=== PATIENT | male | born 1935 | race Caucasian/White ===

== ENCOUNTER 2019-11-05 16:49 | Inpatient (IN) | payer MEDICARE ==
[~2019-11-05 16:49] MED LIST: Iopamidol-370 76% 500 ML 1 ML ONE
[2019-11-05 17:52] LABS: RBC/HPF 0-3 HPF (0-3); Squamous Epithelial 0-3 HPF (0-3); WBC/HPF 0-3 HPF (0-3)
[2019-11-05 17:57] LABS: Hemoglobin 11.6 g/dL (14.0-18.0); Mean Corpuscular HGB CONC 31.8 g/dL (32.0-36.0); Mean Corpuscular Hemoglobin 30.1 pg (27.0-31.0); Mean Corpuscular Volume 94.6 fL (78.0-98.0); Mean Platelet Volume 8.6 fL (7.4-10.4); Platelet Count 247 thou/uL (130-400); RBC Distribution Width 12.5 % (11.5-14.5); Red Blood Cell (RBC) Count 3.86 mill/uL (4.70-6.10)
[2019-11-05 17:57] LABS: Bilirubin Small (Negative); Blood, Urine Trace (Negative); Clarity Clear (Clear); Glucose, Urine (Dipstick) Negative (Negative); Leukocyte Negative (Negative); Nitrite Negative (Negative); Protein, Urine (Dipstick) 30 mg/dL (Neg-Trace)
[2019-11-05 17:58] LABS: Bacteria/HPF None Seen HPF (None Seen)
[2019-11-05 18:04] LABS: INR-International Normal Ratio 1.5; PTT 27.9 SEC (22.9-36.1); Prothrombin Time 17.6 SEC (12.0-14.7)
[2019-11-05 18:09] LABS: Actual Bicarbonate (HCO3v) 19 mEq/L (22-28); Analyzer IN Cardio ER; Base Excess -4.4 mEq/L (-2.0 to +3.0); Calcium, Ionized 1.02 mmol/L (1.16-1.32); Chloride (ABG LAB) 112 mmol/L (98-106); Potassium - ABG Lab 5.03 mmol/L (3.70-5.30); Sodium 141.9 mmol/L (133-146); pH (venous) 7.44 (7.32-7.43)
[2019-11-05 18:19] LABS: ALT (SGPT) 50 U/L (8-55); AST (SGOT) 106 U/L (5-34); Albumin 2.2 g/dL (3.4-4.8); Alkaline Phosphatase 106 U/L (40-110); Anion Gap 21 mmol/L (10-20); BUN (Urea Nitrogen) 91 mg/dL (8.4-25.7); Bilirubin, Total 1.1 mg/dL (0.2-1.2); Calc. Creatinine Clearance 0 mL/min (70-130); Calcium 7.8 mg/dL (7.8-10.44); Carbon Dioxide 18 mmol/L (23-31); Chloride 113 mmol/L (98-107); Estimated GFR-MDRD 30; Globulin 2.3 g/dL (2.4-3.5); Glucose 126 mg/dL (83-110); Lipase 46 U/L (8-78); Potassium 5.4 mmol/L (3.5-5.1); Protein, Total 4.5 g/dL (5.8-8.1); Sodium 147 mmol/L (136-145)
[2019-11-05 18:29] LABS: Band 67 % (5-11); Hypochromia SLIGHT = 6-15 cells (100X) (0-5/hpf); Lymphocytes 7 % (21-51); MDiff Complete? YES; Metamyelocyte 2 % (0-0); Monocytes 3 % (0-10); Neutrophil 19 % (42-75); Platelet Morphology Comment Appears Adequate; Polychromasia SLIGHT = 2-3 cells (100X) (0-2/hpf); Reactive Lymphocytes 2 % (0-10); Reflex for Review?? NO; White Blood Cell (WBC) Count 17.5 thou/uL (4.8-10.8)
[2019-11-05] MEDS ORDERED: Cefepime 2 GM VIAL ONE (18:31)
[2019-11-05 18:43] LABS: CKMB 43.5 ng/mL (0-6.6)
--- NOTE | 2019-11-05 19:24 | CT ---
CT Head without IV contrast COMPARISON: And) [place] [facility] HISTORY: Paresthesias, visual TECHNIQUE: Axial CT imaging at 5 mm intervals from vertex through skull base without contrast FINDINGS: There is no evidence of an acute cortical infarction, hemorrhage, mass effect, or midline shift. Ther e is decreased attenuation seen in the periventricular white matter which is nonspecific but likely attributable to severe chronic small vessel ischemic changes. Severe chronic small vessel ischemic ch anges were also seen on prior MRI exam in 2007. Small focus of encephalomalacia seen in the right occipital lobe likely related to remote infarction. Signal abnormality was seen in this region on katerin or MRI exam in 2008. Small low-density focus is seen in the right cerebellar hemisphere related to tiny remote infarction. There is mild cerebral volume loss. The ventricular system is normal in size, shape, and position for the degree of sulcal atrophy. Minimal mucosal thickening is seen in each maxillary antrum. The mastoid air cells are clear. Dense v ascular calcifications are seen in the carotid siphons. Osseous structures appear intact. IMPRESSION: 1. No acute intracranial abnormality demonstrated. 2. Severe chronic small vessel ischemic changes. 3. Mild cerebral volume loss.
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
[2019-11-05] MEDS ORDERED: Octreotide Acetate 50 MCG/ML AMP ONE (20:56)
[2019-11-05] MEDS ORDERED: Pantoprazole 40 MG VIAL ONE (20:56)
[2019-11-05 21:03] LABS: Lactic Acid 6.1 mmol/L (0.5-2.2)
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
[2019-11-05] MEDS ORDERED: Octreotide Acetate 1,250 MCG in Sodium Chloride 0.9% 250 ML 250 ML IVPB SCH (21:15)
[2019-11-05 22:02] LABS: Platelet Count 206 thou/uL (130-400)
[2019-11-05 22:04] LABS: Fibrinogen 438 mg/dL (253-463)
[2019-11-05 22:05] LABS: INR-International Normal Ratio 1.7; PTT 30.9 SEC (22.9-36.1); Prothrombin Time 20.3 SEC (12.0-14.7)
[2019-11-05 22:16] LABS: FSP-Qualitative ABNORMAL (Normal); FSP-Semiquantitative >=20 & <40 mcg/mL (Less than 5)
[2019-11-05 22:20] LABS: D-Dimer Test 5.72 *mcg/mL (0.27-0.43)
--- NOTE | 2019-11-05 22:49 | PDOC.EVN ---
Event Note - Event Note Event Note: H&P dictated #[id number]. Patient without family or contacts to inform about his critical status. Only number available is [phone] for Rain Dino, the neighbor who called EMS. No answer to the phone tonight on multiple attempts. Will need to continue trying to contact to see if there is any family in the morning.
--- NOTE | 2019-11-05 23:22 | ULT ---
BILATERAL LOWER EXTREMITY ARTERIAL DOPPLER WITH SPECTRAL ANALYSIS AND COLOR FLOW EVALUATION: History: Bilateral lower extremity cyanosis and no detectable pulse in the Emergency Department. Technique: Angeles scale, color flow, doppler evaluation and Spectral analysis of the bilateral lower ex tremity arterial vessels performed with 2D imaging. FINDINGS: Peak systolic velocity in the right common femoral artery is 130.5 cm/sec which is within normal limi ts, but there is spectral broadening of the waveforms suggesting significant stenosis. Velocity measu rements throughout the remainder of the right lower extremity as well as involving the left lower ext remity are significantly decreased throughout and findings are likely attributable to inflow stenosis as well as significant bilateral extremity atherosclerotic vascular disease. There is significantly decreased peak systolic velocities throughout the left lower extremity arterial vessels. The left dorsalis pedis artery is not visualized. The popliteal artery and veins bilaterally are diff icult to evaluate due to patient conditions noted by remote sensing technologist. Incidental note is made of decreased lumen compressibility with only trace flow seen within the left superficial femoral vein from proximal to distal. IMPRESSION: Significantly decreased peak systolic velocities throughout the lower extremity arterial vessels bila terally suggesting significant in-flow stenosis as well as significant atherosclerotic vascular disea se throughout the bilateral lower extremity arterial vessels. Recent CT pelvis demonstrated significa nt calcified atherosclerotic plaque limiting evaluation of the lumen of the arterial vessels involvin g both the iliac and visualized proximal femoral arteries. 2. Evidence of DVT involving the left superficial femoral vein. Only a trace amount of flow is able t o be detected. 3. Subcutaneous edema within the distal left lower extremity. 4. Above findings discussed with Dr. Jensen in the Emergency Department on 11-05-2019 at 2228 hours. POS: OFF
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
[2019-11-05] MEDS ORDERED: Ondansetron ODT 4 MG TAB PO PRN (23:58)
[2019-11-05] MEDS ORDERED: Acetaminophen 325 MG TAB PO PRN (23:58)
[2019-11-05] MEDS ORDERED: Ondansetron PF 4 MG/2 ML Vial IVP PRN (23:58)
[2019-11-05] MEDS ORDERED: Acetaminophen 650 MG Suppository PR PRN (23:58)
[2019-11-06 00:23] VITALS: BMI 20.9
[2019-11-06 01:03] LABS: Troponin I 0.593 ng/mL (< 0.028)
[2019-11-06] MEDS ORDERED: Norepinephrine 8 MG/0.9% NS 250 ML ONE (01:40)
[2019-11-06] MEDS: Norepinephrine 8 MG/0.9% NS 250 ML IVPB SCH (02:11)
[2019-11-06] MEDS: Sodium Chloride 0.9% 1,000 ML IV SCH ×4 (02:26→19:42)
[2019-11-06 04:27] LABS: Anion Gap 12 mmol/L (10-20); BUN (Urea Nitrogen) 103 mg/dL (8.4-25.7); Calc. Creatinine Clearance 24 mL/min (70-130); Carbon Dioxide 21 mmol/L (23-31); Chloride 117 mmol/L (98-107); Estimated GFR-MDRD 27; Glucose 116 mg/dL (83-110); Potassium 4.9 mmol/L (3.5-5.1); Sodium 145 mmol/L (136-145)
[2019-11-06 05:13] LABS: Band 74 % (5-11); Burr Cells SLIGHT = 2-5 cells (100X) (0-1/hpf); Hemoglobin 10.9 g/dL (14.0-18.0); Lymphocytes 3 % (21-51); MDiff Complete? YES; Mean Corpuscular HGB CONC 32.9 g/dL (32.0-36.0); Mean Corpuscular Hemoglobin 30.3 pg (27.0-31.0); Mean Platelet Volume 8.9 fL (7.4-10.4); Metamyelocyte 3 % (0-0); Monocytes 1 % (0-10); Neutrophil 19 % (42-75); Nucleated RBC 3 % (0); Platelet Count 192 thou/uL (130-400); Polychromasia SLIGHT = 2-3 cells (100X) (0-2/hpf); RBC Distribution Width 13.3 % (11.5-14.5)
--- NOTE | 2019-11-06 07:17 | RAD ---
CHEST 1 VIEW: Date: 11/06/2019 INDICATION: Line placement. COMPARISON: Prior exam dated 06/08/2016. FINDINGS: There is hazy opacity involving the left hemithorax suspicious for layered effusion. There is a tiny right pleural effusion. There is mild cardiomegaly. There is pulmonary vascular congestion. There is a right IJ central venous catheter projecting to the SVC. Vascular calcifications and aortic arch sim ilar appearing. No pneumothorax evident. COPD change is similar appearing. No definite acute osseous abnormality is noted. IMPRESSION: 1. Findings suspicious for mild CHF. There is cardiomegaly with some pulmonary vascular congestion a nd bilateral pleural effusions. 2. Right IJ central venous catheter. 3. Stable COPD change. 4. Mildly displaced distal left clavicle fracture. POS: BH
[2019-11-06] MEDS ORDERED: Prevnar 13-Val Conj/PF 0.5 ML SYRINGE IM ONE (09:00)
[2019-11-06] MEDS ORDERED: FLU VACC TS2019-20(65YR UP)/PF 180 MCG/0.5 ML SYRINGE IM ONE (09:00)
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
[2019-11-06] MEDS: Pantoprazole 80 MG, Admixture Fee 1 EACH in Sodium Chloride 0.9% 100 ML IVPB SCH ×2 (10:07→19:28)
[2019-11-06] MEDS: Morphine 4 MG/ML VIAL SLOW IVP PRN ×2 (10:07→20:14)
[2019-11-06 15:09] LABS: Lactic Acid 1.4 mmol/L (0.5-2.2)
[2019-11-06] MEDS ORDERED: Vancomycin 1 GM in Premix Bag 1 BAG IVPB SCH ×2 (15:44→17:00)
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
[2019-11-06] MEDS: Piperacillin/Tazobactam 3.375 GM in Sodium Chloride 0.9% 100 ML IVPB SCH ×2 (18:46→23:41)
[2019-11-07] MEDS: Morphine 4 MG/ML VIAL SLOW IVP PRN ×2 (05:17→10:15)
[2019-11-07] MEDS: Piperacillin/Tazobactam 3.375 GM in Sodium Chloride 0.9% 100 ML IVPB SCH ×2 (05:18→11:46)
[2019-11-07] MEDS: Sodium Chloride 0.9% 1,000 ML IV SCH (05:20)
[2019-11-07] MEDS: Pantoprazole 80 MG, Admixture Fee 1 EACH in Sodium Chloride 0.9% 100 ML IVPB SCH (05:30)
[2019-11-07 06:10] LABS: ALT (SGPT) 82 U/L (8-55); AST (SGOT) 163 U/L (5-34); Albumin 1.8 g/dL (3.4-4.8); Alkaline Phosphatase 98 U/L (40-110); Anion Gap 17 mmol/L (10-20); BUN (Urea Nitrogen) 123 mg/dL (8.4-25.7); Bilirubin, Total 0.9 mg/dL (0.2-1.2); Calc. Creatinine Clearance 20 mL/min (70-130); Calcium 6.4 mg/dL (7.8-10.44); Carbon Dioxide 18 mmol/L (23-31); Chloride 121 mmol/L (98-107); Estimated GFR-MDRD 19; Globulin 2.3 g/dL (2.4-3.5); Glucose 151 mg/dL (83-110); Potassium 5.7 mmol/L (3.5-5.1); Protein, Total 4.1 g/dL (5.8-8.1); Sodium 150 mmol/L (136-145)
[2019-11-07] MEDS ORDERED: Dextrose 5% in Water 1,000 ML IV SCH (07:15)
[2019-11-07] MEDS: Dextrose 50% Abboject 50 ML SYRINGE SLOW IVP ONE ×2 (07:39→11:46)
[2019-11-07] MEDS: Insulin Regular 300 UNITS/3 ML VIAL IVP ONE ×2 (07:40→11:44)
[2019-11-07 08:22] LABS: CKMB 29.8 ng/mL (0-6.6)
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
--- NOTE | 2019-11-07 09:00 | RAD ---
SINGLE VIEW CHEST: Date: 11/07/2019 COMPARISON: 11/06/2019. HISTORY: Pneumonia. FINDINGS: Single view of the chest shows an enlarged cardiomediastinal silhouette. There are small bilateral pl eural effusions, left greater than right. The central venous catheter is unchanged in position. IMPRESSION: Stable exam. POS: [facility]
[2019-11-07 09:07] LABS: Hemoglobin 9.7 g/dL (14.0-18.0); Mean Corpuscular HGB CONC 31.8 g/dL (32.0-36.0); Mean Corpuscular Hemoglobin 30.3 pg (27.0-31.0); Mean Corpuscular Volume 95.3 fL (78.0-98.0); Mean Platelet Volume 8.2 fL (7.4-10.4); Platelet Count 136 thou/uL (130-400); RBC Distribution Width 14.2 % (11.5-14.5); Red Blood Cell (RBC) Count 3.21 mill/uL (4.70-6.10); White Blood Cell (WBC) Count 22.1 thou/uL (4.8-10.8)
--- NOTE | 2019-11-07 09:39 | ULT ---
Renal sonogram HISTORY: Elevated creatinine. Renal insufficiency. FINDINGS: The right kidney measures up to 8.7 cm. No hydronephrosis or mass. Mild diffuse thinning of the osmany x. Left kidney is 10.6 cm length without hydronephrosis or other abnormality. Urinary bladder is decompr essed by a Watson catheter. Incidental note of fluid within the left pleural space. IMPRESSION: No evidence of urinary tract obstruction. Cortical atrophy right kidney. Left pleural effusion.
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
[2019-11-07] MEDS: Norepinephrine 8 MG/0.9% NS 250 ML IVPB SCH (11:55)
[2019-11-07 12:33] VITALS: TEMP 99.2
[2019-11-07] MEDS ORDERED: Furosemide 20 MG/2 ML VIAL SLOW IVP SCH (14:00)
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
[2019-11-07 15:36] LABS: Anion Gap 18 mmol/L (10-20); Calc. Creatinine Clearance 17 mL/min (70-130); Calcium 6.3 mg/dL (7.8-10.44); Carbon Dioxide 17 mmol/L (23-31); Chloride 122 mmol/L (98-107); Estimated GFR-MDRD 16; Glucose 195 mg/dL (83-110); Sodium 149 mmol/L (136-145)
[2019-11-07 15:40] LABS: Potassium 7.7 mmol/L (3.5-5.1)
[2019-11-07 16:21] LABS: BUN (Urea Nitrogen) 118 mg/dL (8.4-25.7)
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
[2019-11-07] MEDS ORDERED: Vancomycin 1 GM in Premix Bag 1 BAG IVPB SCH (17:00)
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
--- NOTE | 2019-11-08 08:28 | EKG ---
Test Reason : Blood Pressure : / mmHG Vent. Rate : 105 BPM Atrial Rate : 105 BPM P-R Int : 000 ms QRS Dur : 144 ms QT Int : 432 ms P-R-T Axes : -33 -49 074 degrees QTc Int : 570 ms Sinus tachycardia Left axis deviation Right bundle branch block Anteroseptal infarct (cited on or before 05-NOV-2019) Abnormal ECG QRS axis Shifted left Serial changes of Anteroseptal infarct Present Confirmed by DR. Jaime DAI ([id number]) on 11/08/2019 8:28:19 AM Referred By: [facility] Confirmed By:DR. Jaime DAI
[2019-11-08] MEDS ORDERED: Vancomycin 1 GM in Premix Bag 1 BAG IVPB SCH (17:00)
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
== END 2019-11-07 16:03 | disposition expired | DRG 871 ==
LOC: ERS 16:49 → CCU 21:11
PROVIDERS: ADMIT Emergency Medicine; ATTEND Internal Medicine
PROC: 3E033XZ Introduction of Vasopressor into Peripheral Vein, Percutaneous Approach (ICD-10-PCS; principal; 2019-11-05)
DX: A41.9 Sepsis, unspecified organism (principal); J96.01 Acute respiratory failure with hypoxia; R65.21 Severe sepsis with septic shock; I21.4 Non-ST elevation (NSTEMI) myocardial infarction; S22.42XA Multiple fractures of ribs, left side, initial encounter for closed fracture; K92.2 Gastrointestinal hemorrhage, unspecified; N17.9 Acute kidney failure, unspecified; E87.2 Acidosis; I82.412 Acute embolism and thrombosis of left femoral vein; E87.0 Hyperosmolality and hypernatremia; N28.0 Ischemia and infarction of kidney; I70.263 Atherosclerosis of native arteries of extremities with gangrene, bilateral legs; Z66 Do not resuscitate; Z51.5 Encounter for palliative care; I73.89 Other specified peripheral vascular diseases; R62.7 Adult failure to thrive; Z68.22 Body mass index [BMI] 22.0-22.9, adult; N18.9 Chronic kidney disease, unspecified; S42.002A Fracture of unspecified part of left clavicle, initial encounter for closed fracture; R57.8 Other shock; I70.0 Atherosclerosis of aorta; I70.8 Atherosclerosis of other arteries; E87.5 Hyperkalemia; R40.2362 Coma scale, best motor response, obeys commands, at arrival to emergency department; R40.2142 Coma scale, eyes open, spontaneous, at arrival to emergency department; R40.2252 Coma scale, best verbal response, oriented, at arrival to emergency department; T79.6XXA Traumatic ischemia of muscle, initial encounter; V89.2XXA Person injured in unspecified motor-vehicle accident, traffic, initial encounter; Y93.89 Activity, other specified; Y92.89 Other specified places as the place of occurrence of the external cause
CPT/HCPCS: 36415; 36416; 36430; 51702; 70450; 71045; 71260; 72125; 74177; 76770; 80048; 80053; 80202; 81003; 81015; 82274; 82550; 82553; 82805; 83605; 83690; 83880; 84484; 85025; 85027; 85049; 85300; 85362; 85379; 85384; 85610; 85730; 86850; 86900; 86901; 93005; 93010; 93306; 93923; 96361; 96365; 96366; 96368; 96375; 96376; 99292; C9113; J0692; J1815; J1940; J2270; J2354; J2543; J3370; J3490; J7050; P9016; Q9967